=== PATIENT | male | born 1970 | race Caucasian/White ===

== ENCOUNTER 2017-04-10 12:34 | Emergency (ER) | payer SELFPAY ==
--- NOTE | 2017-04-10 13:00 | EDPHY ---
HPI/HX/ROS/PE/MDM Narrative: CHIEF COMPLAINT: Leg swelling and erythema. HPI: The patient is a 47 y/o male complaining of bilateral leg swelling and redness onset one week ago. He has never experienced these symptoms previously and reports that he is normally healthy. The rash is not painful or pruritic and does not cause any difficulty walking. He has not tried to treat his symptoms and cannot identify obvious precipitating factors. He does drink alcohol daily. He states he had some type of heart problem when he was a child, but cannot remember what the diagnosis was. He denies associated fever, chest pain, dyspnea, or rash elsewhere. REVIEW OF SYSTEMS: Aside from elements discussed in the HPI, a comprehensive 10-point review of systems was reviewed and is negative. PMH: Denies. Unknown "heart problem when I was little," seizure - unclear if alcohol withdrawal, rhinoplasty, small subdural hematoma 08/17/14 SOCIAL HISTORY: Works in a bar, drinks alcohol daily, daily smoker Prior medical history reviewed including admission 08/17/14 for head injury. PHYSICAL EXAM: General:Patient is alert, in no acute distress. ENT:Eyes are normal to inspection. ENT inspection normal. Neck: Normal inspection. Full range of motion. Respiratory:No respiratory distress. Breath sounds normal bilaterally. Cardiovascular: Regular rate and rhythm. Strong peripheral pulses. Normal cap refill. Abdomen:The abdomen is nontender to palpation. There are no peritoneal signs. Back: Normal to inspection. No tenderness to palpation. Skin: Normal color. No rash. Warm and dry. Extremities: Full range of motion. Lower extremities: bilateral 3+ pitting edema , erythema extending from ankle to knees, non-tender Neuro: Oriented x3. Normal motor function. Normal sensory function. ED Course: IV established. Labs drawn including CBC, CHEM, BNP, troponin, LFTs. US lower extremities ordered. US are negative. Labs are unremarkable. BNP normal, decreasingly likelihood of CHF. Patient has symmetric edema and erythema with normal labs and no fever, which makes me less suspicious of cellulitis. I discussed findings with him and recommended using compression stockings. He understands he should follow up with his PCP this week and sooner if symptoms progress. Return precautions given. He is comfortable with this plan. - Data Points Imaging Results: Imaging Impressions Extremity Venous Study 04/10/17 13:05 Impression: No evidence of deep vein thrombosis in the right or left lower extremity. Results called and discussed with Isac Gann MD, at 04/10/2017 14:34 Imaging: Discussed imaging studies w/ digital assistant Radiologist Laboratory Results: Laboratory Results 04/10/17 13:00 04/10/17 13:00 04/10/17 04/10/17 13:00 13:00 WBC 6.03 10^3/uL 10^3/uL (3.80-9.50) RBC 4.40 10^6/uL 10^6/uL (4.40-6.38) Hgb 13.6 g/dL L g/dL (13.7-17.5) Hct 41.6 % % (40.0-51.0) MCV 94.5 fL fL (81.5-99.8) MCH 30.9 pg pg (27.9-34.1) MCHC 32.7 g/dL g/dL (32.4-36.7) RDW 14.7 % % (11.5-15.2) Plt Count 295 10^3/uL 10^3/uL (150-400) MPV 8.4 fL L fL (8.7-11.7) Neut % (Auto) 62.7 % % (39.3-74.2) Lymph % (Auto) 16.7 % % (15.0-45.0) [place] % (Auto) 15.3 % H % (4.5-13.0) Eos % (Auto) 4.0 % % (0.6-7.6) Baso % (Auto) 0.8 % % (0.3-1.7) Nucleat RBC Rel Count 0.0 % % (0.0-0.2) Absolute Neuts (auto) 3.78 10^3/uL 10^3/uL (1.70-6.50) Absolute Lymphs (auto) 1.01 10^3/uL 10^3/uL (1.00-3.00) Absolute Monos (auto) 0.92 10^3/uL H 10^3/uL (0.30-0.80) Absolute Eos (auto) 0.24 10^3/uL 10^3/uL (0.03-0.40) Absolute Basos (auto) 0.05 10^3/uL 10^3/uL (0.02-0.10) Absolute Nucleated RBC 0.00 10^3/uL 10^3/uL (0-0.01) Immature Gran % 0.5 % % (0.0-1.1) Immature Gran # 0.03 10^3/uL 10^3/uL (0.00-0.10) Sodium 141 mEq/L mEq/L (134-144) Potassium 3.6 mEq/L mEq/L (3.5-5.2) Chloride 103 mEq/L mEq/L (97-110) Carbon Dioxide 25 mEq/l mEq/l (22-31) Anion Gap 13 mEq/L mEq/L (8-16) BUN 13 mg/dL mg/dL (7-23) Creatinine 0.8 mg/dL mg/dL (0.7-1.3) Estimated GFR > 60 Glucose 142 mg/dL H mg/dL (70-100) Calcium 8.9 mg/dL mg/dL (8.5-10.4) Total Bilirubin 0.7 mg/dL mg/dL (0.1-1.4) Conjugated Bilirubin 0.4 mg/dL mg/dL (0.0-0.5) Unconjugated Bilirubin 0.3 mg/dL mg/dL (0.0-1.1) AST 67 IU/L H IU/L (17-59) ALT 69 IU/L IU/L (21-72) Alkaline Phosphatase 133 IU/L H IU/L (38-126) Troponin I < 0.012 ng/mL ng/mL (0-0.034) NT-Pro-B Natriuret Pep 33 pg/mL pg/mL (0-125) Total Protein 7.8 g/dL g/dL (6.3-8.2) Albumin 4.4 g/dL g/dL (3.5-5.0) General Time Seen by Provider: 04/10/17 12:53 Initial Vital Signs: Initial Vital Signs Temperature (C) 36.7 C 04/10/17 12:41 Heart Rate 115 H 04/10/17 12:41 Respiratory Rate 16 04/10/17 12:41 Blood Pressure 146/71 H 04/10/17 12:41 O2 Sat (%) 95 04/10/17 12:41 O2 Delivery Mode Room Air Allergies/Adverse Reactions: Penicillins Allergy (Unknown, Verified 08/25/14 13:35) Home Medications: Medication Instructions Recorded Herbals/Supplements -Info Only 1 ea PO DAILY 08/25/14 levETIRAcetam [Keppra 500 mg (*)] 500 mg PO BID #14 tab 08/25/14 Departure - Departure Disposition: Home, Routine, Self-Care Clinical Impression: Leg swelling, bilateral, Leg erythema Condition: Good Instructions: Leg Edema (ED), Cephalexin (By mouth) Additional Instructions: 1. Follow up with your primary care provider this week. 2. Wear compression stockings whenever possible and particularly while standing at work. 3. Take Keflex as prescribed and be sure to complete the entire prescription. 4. Return to the ED for chest pain, fever, shortness of breath, severe leg pain , dramatic increase in swelling, or other worsening of condition. Referrals: Dameon Barbosa MD [Medical Doctor] - As per Instructions Report Scribed for: Isac Gann Report Scribed by: Shu Nicholson Date of Report: 04/10/17 Time of Report: 13:00 Physician Review and Approval Statement: Portions of this note were transcribed by an ED scribe. I personally performed the history, physical exam, and medical decision making; and confirm the accuracy of the information in the transcribed note.
[2017-04-10 13:10] LABS: % IMMATURE GRANULYOCYTES 0.5 % (0.0-1.1); ABSOLUTE IMMATURE GRANULOCYTES 0.03 10^3/uL (0.00-0.10); ADD DIFF? NO; ADD MORPH? NO; ADD SCAN? NO; ATYPICAL LYMPHOCYTE FLAG 0 (0-99); FRAGMENT RBC FLAG 0 (0-99); HEMATOCRIT 41.6 % (40.0-51.0); HEMOGLOBIN 13.6 g/dL (13.7-17.5); LEFT SHIFT FLG 0 (0-99); LIPEMIA HEMOLYSIS FLAG 80 (0-99); MEAN CELL HEMOGLOBIN 30.9 pg (27.9-34.1); MEAN CELL HEMOGLOBIN CONCENTR. 32.7 g/dL (32.4-36.7); MEAN CELL VOLUME 94.5 fL (81.5-99.8); MEAN PLATELET VOLUME 8.4 fL (8.7-11.7); PLATELET CLUMPS FLAG 0 (0-99); PLATELET COUNT 295 10^3/uL (150-400); RED CELL DISTRIBUTION WIDTH 14.7 % (11.5-15.2)
[2017-04-10 13:22] LABS: ALANINE AMINOTRANSFERASE 69 IU/L (21-72); ALBUMIN 4.4 g/dL (3.5-5.0); ALKALINE PHOSPHATASE 133 IU/L (38-126); ANION GAP 13 mEq/L (8-16); ASPARTATE AMINOTRANSFERASE 67 IU/L (17-59); BILIRUBIN,TOTAL 0.7 mg/dL (0.1-1.4); BILIRUBIN-CONJUGATED 0.4 mg/dL (0.0-0.5); BILIRUBIN-UNCONJUGATED 0.3 mg/dL (0.0-1.1); CALCIUM 8.9 mg/dL (8.5-10.4); CARBON DIOXIDE 25 mEq/l (22-31); CHLORIDE 103 mEq/L (97-110); CREATININE 0.8 mg/dL (0.7-1.3); GLOMERULAR FILTRATION RATE > 60; GLUCOSE 142 mg/dL (70-100); POTASSIUM 3.6 mEq/L (3.5-5.2); SODIUM 141 mEq/L (134-144); TOTAL PROTEIN 7.8 g/dL (6.3-8.2)
[2017-04-10 13:33] LABS: TROPONIN I < 0.012 ng/mL (0-0.034)
[2017-04-10 15:22] VITALS: BP 135/88; PULSE 85; RESP 14; TEMP 97.7; O2SAT 94
== END 2017-04-10 15:22 | disposition home or self-care (01) ==
DX: M79.89 Other specified soft tissue disorders (principal); L53.9 Erythematous condition, unspecified; F17.200 Nicotine dependence, unspecified, uncomplicated

== ENCOUNTER 2017-08-04 13:16 | Inpatient (IN) | payer SELFPAY ==
[2017-08-04] MEDS ORDERED: LORazepam 2 MG/ML INJ IVP ONE ×3 (13:47→15:57)
[2017-08-04] MEDS ORDERED: NS 1,000 ML IV ONE ×3 (13:48→17:05)
[2017-08-04 13:53] LABS: % IMMATURE GRANULYOCYTES 0.3 % (0.0-1.1); ABSOLUTE IMMATURE GRANULOCYTES 0.02 10^3/uL (0.00-0.10); ADD DIFF? NO; ADD MORPH? NO; ADD SCAN? NO; ATYPICAL LYMPHOCYTE FLAG 10 (0-99); FRAGMENT RBC FLAG 0 (0-99); HEMATOCRIT 43.2 % (40.0-51.0); HEMOGLOBIN 13.7 g/dL (13.7-17.5); LEFT SHIFT FLG 0 (0-99); LIPEMIA HEMOLYSIS FLAG 80 (0-99); MEAN CELL HEMOGLOBIN 31.4 pg (27.9-34.1); MEAN CELL HEMOGLOBIN CONCENTR. 31.7 g/dL (32.4-36.7); MEAN CELL VOLUME 98.9 fL (81.5-99.8); PLATELET CLUMPS FLAG 0 (0-99); PLATELET COUNT 218 10^3/uL (150-400); RED BLOOD CELL COUNT 4.37 10^6/uL (4.40-6.38); RED CELL DISTRIBUTION WIDTH 13.4 % (11.5-15.2)
[2017-08-04] MEDS ORDERED: FOLIC ACID 1 MG TAB PO ONE (13:53)
[2017-08-04] MEDS ORDERED: THIAMINE HCL 100 MG TAB PO ONE (13:53)
--- NOTE | 2017-08-04 13:56 | EDPHY ---
General - History Smoking Status: Current every day smoker Narrative: CHIEF COMPLAINT: Possible seizure HISTORY OF PRESENT ILLNESS: Patient arrives by EMS with reports of possible seizure. He is completely amnestic to the event. He has no idea what happened. He remembers being at work this morning but no other details. EMS reports that bystanders witnessed seizure-like activity but there is no detail. No witnesses here. He reports history of seizure in the past but does not recall when or where this happened. He does not know what medications he is mostly all. He does not know anything other than where he is right. No other history obtainable as he is severely postictal. REVIEW OF SYSTEMS: Ten systems reviewed and are negative unless otherwise noted in the HPI PAST MEDICAL HISTORY: Seizure disorder. Possible alcoholism PAST SURGICAL HISTORY: None SOCIAL HISTORY: Smoker. Admits to daily alcohol use. Works at a [employer] here in [place] FAMILY HISTORY: Noncontributory EXAMINATION General Appearance: Alert, no distress, diaphoretic Head: normocephalic, atraumatic Eyes: Pupils equal and round, no conjunctival pallor or injection ENT, Mouth: Mucous membranes moist. Airway patent Neck: Normal inspection, supple, non-tender Respiratory: Lungs are clear to auscultation Cardiovascular: Tachycardic rate with regular rhythm. No murmur. Gastrointestinal: Abdomen is soft and nontender Back: non-tender, no bony abnormalities Neurological: Tremulous. GCS 14. Alert to person place and time. Amnestic to details of the event, nonfocal, strength symmetric. Skin: Warm and dry, no rash no petechiae. Diaphoretic Extremities: Nontender, no pedal edema Psychiatric: Mood and affect normal DIFFERENTIAL DIAGNOSES: Including but not limited to seizure with postictal state, status epilepticus, alcohol withdrawal, delirium tremens, dehydration, electrolyte disturbance MDM: 1:45 p.m. Possible seizure in a patient with documented history of seizures and alcoholism with withdrawal seizures. Patient is postictal and I cannot get a clear history. He arrives by EMS with no on else at bedside. Per EMS reports there was no trauma. No full description of the seizure-like activity. I have ordered laboratory studies, Ativan, clinical research monitor, thiamine and folate. I will monitor closely. 2:30 p.m. The laboratory studies thus far reveal no significant findings. Consistent with likely seizure. He remains mildly tachycardic and postictal but he is awake. He is not encephalopathic. 3:15 p.m. I re-evaluated the patient. He is more diaphoretic now than previous evaluation. He remains tachycardic but normotensive. Afebrile. He does recall more fits previous health history at this time but cannot provide many details of this. magnesium, etoh and prolactin pending. Plan for admission to hospital for observation. 3:45 p.m. I have re-evaluated the patient. The repeat dose of Ativan has improved his tachycardia. He remains stable with no seizure activity. Still have concern for possible delirium tremens. I discussed the case with Dr. Bernal, and she will admit the patient to her service. He is admitted to step-down unit in stable condition. 4:30 p.m. Patient re-evaluated. Continues to be tachycardic. I have ordered Librium and Ativan. He remains awake alert no acute distress. (Rogelio Yates) Discussion: I evaluated and participated in the management of the patient. My co-signature indicates that I have reviewed this chart and I agree with thefindings and plan of care as documented. My personal H&P findings include: 47 year old male presenting after a seizure. Initially post ictal, but cleared over time. However, patient developed tremors, tachycardia and began to develop some confusion. Suspect alcohol withdrawl. General Appearance: Alert, quite diaphoretic on my exam. No head trauma. PERRL, no nystagmus. Lungs clear and heart tachycardic but regular. Abdomen benign. Tremors of hands. Oriented to person and place only. Will treat agressively with benzodiazepines and fluids and admission. No clear indication for repeat CT scan of head; will follow closely on floor. (Paola Batres) - Objective Vital Signs: Initial Vital Signs Temperature (C) 36.9 C 08/04/17 13:23 Heart Rate 122 H 08/04/17 13:23 Respiratory Rate 20 08/04/17 13:23 Blood Pressure 157/93 H 08/04/17 13:23 O2 Sat (%) 94 08/04/17 13:23 O2 Delivery Mode Nasal Cannula O2 (L/minute) 2 Allergies/Adverse Reactions: Penicillins Allergy (Unknown, Verified 08/25/14 13:35) Home Medications: Medication Instructions Recorded levETIRAcetam [Keppra 500 mg (*)] 500 mg PO BID #60 tab 08/05/17 Laboratory Results: Laboratory Results 08/04/17 12:30 08/04/17 12:30 Medications Given: Discontinued Medications Chlordiazepoxide HCl (Librium) 25 mg PO EDNOW ONE Stop: 08/04/17 15:58 Last Admin: 08/04/17 16:10 Dose: 25 mg Chlordiazepoxide HCl (Librium) 50 mg PO ONCE ONE Stop: 08/04/17 17:09 Last Admin: 08/04/17 18:29 Dose: 50 mg Chlordiazepoxide HCl (Librium) 25 mg PO TID JOSE ARMANDO Stop: 01/31/18 21:59 Last Admin: 08/05/17 09:12 Dose: 25 mg Enoxaparin Sodium (Lovenox) 40 mg SC DAILY JOSE ARMANDO Stop: 02/01/18 08:59 Last Admin: 08/05/17 09:12 Dose: 40 mg Folic Acid (Folic Acid) 1 mg PO EDNOW ONE Stop: 08/04/17 13:54 Last Admin: 08/04/17 13:59 Dose: 1 mg Sodium Chloride (Ns) 1,000 mls @ 0 mls/hr IV EDNOW ONE; Wide Open PRN Reason: Protocol Stop: 08/04/17 13:49 Last Admin: 08/04/17 13:58 Dose: 1,000 mls Sodium Chloride (Ns) 1,000 mls @ 0 mls/hr IV EDNOW ONE; Wide Open PRN Reason: Protocol Stop: 08/04/17 15:18 Last Admin: 08/04/17 15:29 Dose: 1,000 mls Sodium Chloride (Ns) 1,000 mls @ 3,000 mls/hr IV ONCE ONE Stop: 08/04/17 17:24 Last Admin: 08/04/17 18:27 Dose: 1,000 mls Thiamine HCl 500 mg/ Sodium (Chloride) 105 mls @ 210 mls/hr IV DAILY JOSE ARMANDO Stop: 08/05/17 09:29 Last Admin: 08/05/17 09:12 Dose: 105 mls Levetiracetam (Keppra) 500 mg PO BID [facility] Stop: 01/31/18 19:44 Last Admin: 08/05/17 09:12 Dose: 500 mg Lorazepam (Ativan Injection) 1 mg IVP EDNOW ONE Stop: 08/04/17 13:48 Last Admin: 08/04/17 13:59 Dose: 1 mg Lorazepam (Ativan Injection) 1 mg IVP EDNOW ONE Stop: 08/04/17 15:18 Last Admin: 08/04/17 15:29 Dose: 1 mg Lorazepam (Ativan Injection) 1 mg IVP EDNOW ONE Stop: 08/04/17 15:58 Last Admin: 08/04/17 16:10 Dose: 1 mg Nicotine (Nicoderm Cq) 21 mg TD DAILY JOSE ARMANDO Stop: 01/31/18 19:44 Last Admin: 08/05/17 09:12 Dose: 21 mg Potassium Chloride (Klor-Con) 30 meq PO ONCE ONE PRN Reason: Protocol Stop: 08/04/17 20:09 Last Admin: 08/04/17 20:25 Dose: 30 meq Thiamine HCl (Vitamin B-1) 100 mg PO EDNOW ONE Stop: 08/04/17 13:54 Last Admin: 08/04/17 13:59 Dose: 100 mg Departure - Departure Disposition: [facility] Clinical Impression: Tachycardia, Seizure Alcohol withdrawal Qualifiers: Complication of substance-induced condition: with unspecified complication Qualified Code(s): F10.239 - Alcohol dependence with withdrawal, unspecified Condition: Good
[2017-08-04 14:00] LABS: ANION GAP 24 mEq/L (8-16); CALCIUM 9.5 mg/dL (8.5-10.4); CARBON DIOXIDE 14 mEq/l (22-31); CHLORIDE 100 mEq/L (97-110); CREATININE 1.1 mg/dL (0.7-1.3); GLOMERULAR FILTRATION RATE > 60; GLUCOSE 146 mg/dL (70-100); POTASSIUM 3.4 mEq/L (3.5-5.2); SODIUM 138 mEq/L (134-144)
--- NOTE | 2017-08-04 15:25 | CPEKG ---
Heart Rate: 98 RR Interval: 612 P-R Interval: 160 QRSD Interval: 84 QT Interval: 372 QTC Interval: 476 P Captiva: 76 QRS Captiva: 79 T Wave Captiva: 67 EKG Severity - ABNORMAL ECG - EKG Impression: SINUS RHYTHM EKG Impression: SERGIO, CONSIDER BIATRIAL ABNORMALITIES Electronically Signed By: Janak Saleem 05-Aug-2017 12:25:00
[2017-08-04 15:39] LABS: PROLACTIN 15.8 ng/mL (3.7-17.9)
[2017-08-04] MEDS ORDERED: chlordiazePOXIDE 25 MG CAP PO ONE (15:57)
[2017-08-04 16:06] LABS: ETHANOL SERUM 49 mg/dL (0-10)
[2017-08-04] MEDS ORDERED: ONDANSETRON DISINTEGRATING 4 MG TAB PO PRN (17:05)
[2017-08-04] MEDS ORDERED: ACETAMINOPHEN 325 MG TAB PO PRN (17:05)
[2017-08-04] MEDS ORDERED: ONDANSETRON 4 MG/2 ML VIAL IVP PRN (17:05)
[2017-08-04] MEDS ORDERED: LORazepam 2 MG/ML INJ IVP PRN (17:08)
[2017-08-04] MEDS ORDERED: DEXMEDETOMIDINE HCL 400 MCG in NS 100 ML IV SCH (17:30)
[2017-08-04] MEDS: chlordiazePOXIDE 25 MG CAP PO ONE ×2 (18:24→18:29)
[2017-08-04] MEDS ORDERED: PROTOCOL POTASSIUM 1 DOSE MISC PRN (19:36)
[2017-08-04] MEDS: THIAMINE HCL 500 MG in NS 100 ML IV SCH (19:38)
--- NOTE | 2017-08-04 20:07 | GHP ---
[f rep st] HISTORY AND PHYSICAL DATE OF ADMISSION: 08/04/2017 CHIEF COMPLAINT: Seizure. HISTORY OF PRESENT ILLNESS: 47-year-old male with a history of alcohol abuse and underlying seizure disorder, who presents after having a witnessed seizure at work. The patient was brought in by emerg ency transport. Seizure was witnessed by co-workers, who are not present in the ED to give the story . The patient is unable to recall the event himself. Reports that his last drink occurred the ng prior to presentation. He actively denies any pain, any vision changes, any nausea, vomiting, abd ominal discomfort, diarrhea, dysuria, myalgias, arthralgias, or fever. PAST MEDICAL HISTORY: 1. Seizure disorder as a child. 2. Alcohol abuse with history of withdrawal. SOCIAL HISTORY: The patient smokes about a pack of cigarettes a day, drinks 5 or more alcoholic beve rages a day, and denies illicit drugs or marijuana. FAMILY HISTORY: Positive for a brother who has had seizures before. REVIEW OF SYSTEMS: A 10-point review of systems is negative with the exception of that reported in t he HPI. PHYSICAL EXAMINATION: VITAL SIGNS: Blood pressure 144/90, heart rate 125, respiratory rate 13. 96% on 2 L. 37.0. GENERAL: This is a disheveled young male, who appears lethargic. HENT: Notable fo r dry mucous membranes. EYES: Negative for any icterus. CARDIAC: The patient is tachycardic but r egular. PULMONARY: Clear to auscultation bilaterally. GASTROINTESTINAL: Positive bowel sounds. A BDOMEN: Soft and nontender in all 4 quadrants. MUSCULOSKELETAL: Negative for any lower extremity e satish. SKIN: Negative for any rashes. NEUROLOGIC: The patient is quite tremulous with tongue fasci culations and somnolent. PSYCHIATRIC: He is cooperative. DATA: White count is 6.6, hematocrit 43.2. Creatinine of 1.1. Potassium of 3.4. Ethyl alcohol 49. EKG, which I personally reviewed and interpreted, shows sinus rhythm, normal axis, normal intervals, without any acute ST-T changes. ASSESSMENT AND PLAN: This is a 47-year-old male, presenting with seizure. 1. Acute seizure. The patient likely has an underlying seizure disorder. Reports he has not taken medications regularly in many years but was historically on Keppra. We will restart Keppra here in [facility]. Additionally, the patient is at high risk for seizure secondary to alcohol withdrawal. We will aggressively treat withdrawal as well. We will consult Neurology in the morning for long-te followup of this patient post disposition and recommendations related to any additional acute inpa tient workup. 2. Acute alcohol withdrawal. The patient is quite tremulous, tachycardic, with tongue fasciculation s. I do believe we are at the beginning of what likely will be a complicated withdrawal. I have ini tiated Librium, Ativan, IV thiamin, and have written for a Precedex drip, as I suspect it is possible he needs it before the end of the evening. We will continue IV fluids and supportive care. 3. Tobacco abuse. I have placed a nicotine patch. 4. Hypokalemia. We will start the patient on electrolyte protocol. 5. Prophylaxis with Lovenox. DIET: Regular. DISPOSITION: I expect greater than 2 midnights, as the patient is likely going to have worsening of his withdrawal before he improves. I have discussed the case with the emergency room physician. The patient will be triaged to the step-down unit for care. /[id number]/MODL
[2017-08-04] MEDS ORDERED: POTASSIUM CL 10 MEQ TAB PO ONE (20:08)
[2017-08-04] MEDS: levETIRAcetam 500 MG TAB PO SCH (20:25)
[2017-08-04] MEDS: NICOTINE 21 MG/24 HR PATCH TD SCH (20:25)
[2017-08-04] MEDS: chlordiazePOXIDE 25 MG CAP PO SCH (21:48)
[2017-08-05 04:08] VITALS: O2SAT 95
[2017-08-05 05:52] LABS: % IMMATURE GRANULYOCYTES 0.5 % (0.0-1.1); ABSOLUTE IMMATURE GRANULOCYTES 0.03 10^3/uL (0.00-0.10); ADD DIFF? NO; ADD MORPH? NO; ADD SCAN? NO; ATYPICAL LYMPHOCYTE FLAG 0 (0-99); FRAGMENT RBC FLAG 0 (0-99); HEMATOCRIT 39.4 % (40.0-51.0); HEMOGLOBIN 12.9 g/dL (13.7-17.5); LEFT SHIFT FLG 0 (0-99); LIPEMIA HEMOLYSIS FLAG 80 (0-99); MEAN CELL HEMOGLOBIN 30.9 pg (27.9-34.1); MEAN CELL HEMOGLOBIN CONCENTR. 32.7 g/dL (32.4-36.7); MEAN CELL VOLUME 94.5 fL (81.5-99.8); PLATELET CLUMPS FLAG 0 (0-99); PLATELET COUNT 151 10^3/uL (150-400); RED BLOOD CELL COUNT 4.17 10^6/uL (4.40-6.38); RED CELL DISTRIBUTION WIDTH 13.1 % (11.5-15.2)
[2017-08-05 06:15] LABS: ANION GAP 10 mEq/L (8-16); CALCIUM 8.8 mg/dL (8.5-10.4); CARBON DIOXIDE 21 mEq/l (22-31); CHLORIDE 102 mEq/L (97-110); CREATININE 0.8 mg/dL (0.7-1.3); GLOMERULAR FILTRATION RATE > 60; GLUCOSE 74 mg/dL (70-100); MAGNESIUM 1.9 mg/dL (1.6-2.3); SODIUM 133 mEq/L (134-144)
[2017-08-05 07:27] VITALS: RESP 15
[2017-08-05] MEDS ORDERED: ENOXAPARIN 40 MG/0.4 ML SYR SC SCH (09:00)
[2017-08-05] MEDS: THIAMINE HCL 500 MG in NS 100 ML IV SCH (09:12)
[2017-08-05] MEDS: chlordiazePOXIDE 25 MG CAP PO SCH (09:12)
[2017-08-05] MEDS: NICOTINE 21 MG/24 HR PATCH TD SCH (09:12)
[2017-08-05] MEDS: levETIRAcetam 500 MG TAB PO SCH (09:12)
--- NOTE | 2017-08-05 09:39 | NEUROPROG ---
Assessment: [id number] CC: Dr. Bernal consulted neurology for a seizure. Results placed in the EMR for her review. HPI: He was noted to have a generalized seizure on 08/04/17 so was brought to [facility] by EMS and admitted. Pt with PMHx of seizure disorder, history of alcohol abuse and withdrawal, and reporting his last drink was 08/03/17. I initially saw him on 08/05/17. He had been started on keppra 500 mg bid and was seizure free since then. He was being treated for alcohol withdrawal on CIWA and reported no new complaints. PMHx: seizure disorder, alcohol abuse with history of withdrawal SHx: 5 alcoholic drinks per day FHx: seizures ROS: Pt denied acute fever, total vision loss, active severe chest pain, respiratory failure, total body severe rash, total bowel/bladder incontinence, psychosis, active seizures, or active bleeding O: VS reviewed General: Alert Eyes: Fundoscopic exam not able to visualize optic disks CV: Heart RRR, no murmur, no carotid bruit Lungs: Clear to auscultation bilaterally, no rhonci or rales Neuro: - Mental: . Oriented x person/place/date . concentration appears normal . speech fluency/comprehension normal . memory appears normal . fund of knowledge appear intact - Cranial Nerves: . II: PERRL, VFFTC . III/IV/: EOMI, no nystagmus, normal smooth pursuits, no Ptosis . V: facial sensation intact to LT . VII: face symmetric to eye closure and smile . VIII: hearing intact to conversation . IX/X: uvula raises symmetrically . XI: SCM 5/5 B/L strength . XII: tongue protrudes midline w/nl strength - Motor: . Tone: normal tone in all 4 extrem, tremor in arms/legs (likely from alcohol withdrawal) . Strength: no pronator drift, strength 5/5 throughout (B/L delt, bic, tri, hand machine feeder raw stock, hf/he, df/pf) - Reflexes: B/L bic/BR/patella 2/4 - Sensory: all 4 extrem intact to light touch - Coord: [id number] wnl, ROSHAN wnl, [id number] wnl - Gait: normal casual gait Labs: 08/04/17- CBC wnl, Chem K 3.4L CO2 14L Anion Gap 24H GLuc 146, alcohol 49H Rads: 07/08/16- Head CT: severe sinusitis otherwise normal head CT Assessment: 1. Seizure disorder in setting of alcohol abuse: Normal neurologic exam 08/04/17 and unremarkable intracranial head CT 07/08/16. Pt reports underlying seizure disorder with superimposed alcohol abuse disorder. Agree with Keppra 500 mg bid chcf in addition to need for alcohol cessation. 2. Alcohol Withdrawal: defer to hospitalist Plan: - Cont Keppra 500 mg bid - No driving and seizure precautions until f/u in neurology clinic - F/U in neurology clinic in 6 weeks Neurology will sign off but will be happy to become reinvolved if needed. Objective: Vital Signs Temp Pulse Resp BP Pulse Ox 37.1 C 75 15 113/71 95 08/05/17 07:26 08/05/17 07:26 08/05/17 07:26 08/05/17 07:26 08/05/17 07:26 Laboratory Results 08/05/17 05:38 08/05/17 05:38 08/04/17 08/05/17 08/06/17 05:59 05:59 05:59 Intake Total 1613 Output Total 950 Balance 663 Allergies/Adverse Reactions: Penicillins Allergy (Unknown, Verified 08/25/14 13:35)
[2017-08-05 11:28] VITALS: BP 127/75; PULSE 84; TEMP 98.2
--- NOTE | 2017-08-05 15:15 | ASMTCASEMG ---
Living Arrangements What is your living Answers: Alone arrangement? Who do you live with? Type Of Residence What kind of residence do Answers: Homeless you live in? Discharge Plan Comments Coordination Status Comments Notes: Patient is a 47yo male with a hx of alcohol abuse and underlying seizure disorder. Patient works for the [employer] and had a witnessed seizure at work. Patient is also in alcohol withdrawal, tremulous, tachycardic, with tongue fasciculations. Physician expects a complicated withdrawal. OT/PT have been ordered. Awaiting therapies' recommendations to d/t d/c needs. CM will follow. Date Signed: 08/05/2017 03:14 PM Electronically Signed By:Tamia Vidal LCSW
--- NOTE | 2017-08-05 16:20 | GDS ---
[f rep st] DISCHARGE SUMMARY DIAGNOSES: 1. Alcohol abuse and withdrawal. 2. Seizure. 3. Tobacco abuse. 4. Hypokalemia. 5. Mild hyponatremia. HOSPITAL COURSE: This is a 47-year-old man with a history of alcohol abuse, who had a witnessed seiz ure. He was started on Keppra. Seen by Neurology, who agrees with this plan. Recommend that he fol low seizure precautions, including no driving until he is cleared by a neurologist. He should follow up with Dr. Antonio in 6 weeks. He has had history of alcohol abuse. He tells me that he has no plans of cessation at this point tho ugh he does want to cut down. He has received some treatment for withdrawal. On discharge, he is ambulating, mentating, appears to be in mild withdrawal. He is anxious to be discharged. BILLING: I spent more than 30 minutes on the day of discharge coordinating care. /[id number]/MODL
[2017-08-07] MEDS ORDERED: THIAMINE HCL 100 MG TAB PO SCH (09:00)
== END 2017-08-05 16:07 | disposition home or self-care (01) | DRG 101 ==
LOC: EDUNIT# → F2N 18:14
PROVIDERS: ADMIT Hospitalist; ATTEND Student in an Organized Health Care Education/Training Program
DX: G40.909 Epilepsy, unspecified, not intractable, without status epilepticus (principal); F10.239 Alcohol dependence with withdrawal, unspecified; Z87.891 Personal history of nicotine dependence; E87.6 Hypokalemia
CPT/HCPCS: 96374; 97161-GP; 97165-GO; G0480; J1650; J2060; J3411

== ENCOUNTER 2018-01-15 14:41 | Emergency (ER) | payer SELFPAY ==
[2018-01-15] MEDS ORDERED: THIAMINE HCL 100 MG TAB PO ONE (14:44)
[2018-01-15] MEDS ORDERED: FOLIC ACID 1 MG TAB PO ONE (14:44)
[2018-01-15] MEDS ORDERED: LORazepam 2 MG/ML INJ IVP ONE (14:47)
[2018-01-15] MEDS ORDERED: LORazepam 1 MG TAB PO PRN (14:47)
[2018-01-15] MEDS ORDERED: LORazepam 2 MG/ML INJ IVP PRN (14:47)
--- NOTE | 2018-01-15 14:47 | EDPHY ---
H & P - Personal History Tetanus Vaccine Date: ADM 08/17/2014 - Medical/Surgical History Hx Asthma: No Hx Chronic Respiratory Disease: No Hx Diabetes: No Hx Cardiac Disease: No Hx Renal Disease: No Hx Cirrhosis: No Hx Alcoholism: Yes Hx HIV/AIDS: No Hx Splenectomy or Spleen Trauma: No Other PMH: pmh- seizures, narcolepsy, ETOH, Cocaine. psh- rhinoplasty - Social History Smoking Status: Current every day smoker Time Seen by Provider: 01/15/18 14:43 HPI/ROS: CHIEF COMPLAINT: Seizure-like activity HISTORY OF PRESENT ILLNESS: 48-year-old male history of alcoholism, history of seizures, history of alcohol withdrawal seizure, arrives by ambulance after he was at work, a colleague noticed that as he was standing he started to act strange, had seizure-like activity, the colleague grabbed the patient lowered him to the ground. No trauma no head injury no fall. Patient approximately 1 min of generalized tonic-clonic like movements and has now recovered. Last drink of alcohol was 24 hr ago. Patient has a history of epilepsy, has been previously prescribed Keppra which he has not been on for several months. No incontinence. No oral trauma. No antecedent illness. REVIEW OF SYSTEMS: A ten point review of systems was performed and is negative with the exception of the items mentioned in the HPI PAST MEDICAL & SURGICAL HISTORY: Epilepsy. Alcohol withdrawal seizure. Noncompliant with Keppra SOCIAL HISTORY:Last drink of alcohol 24 hr ago PHYSICAL EXAM (Prior to examination, patient consented to physical exam, hands were washed and my usual and customary physical exam procedures followed) 1) GENERAL: Well-developed, well-nourished, alert and oriented to person place time events. Somnolent, tremulous 2) HEAD: Normocephalic, atraumatic 3) HEENT: Pupils equal, round, reactive to light bilaterally. Sclera anicteric. Nasopharynx, oropharynx, clear, no lesions. Ears bilaterally with normal tympanic membranes. No raccoon eyes, no Mitchell sign. No rhinorrhea. No otorrhea. 4) NECK: Full range of motion, no meningeal signs. No midline C-spine pain. 5) LUNGS: Clear auscultation bilaterally, no wheezes, no rhonchi, no retractions. 6) HEART: Regular rate and rhythm, no murmur, no heave, no gallop. 7) ABDOMEN: No guarding, no rebound, no focal tenderness, no signs of trauma 8) MUSCULOSKELETAL: Moving all extremities, no focal areas of tenderness, no obvious trauma. 9) BACK: No midline vertebral tenderness, no fluctuance, no step-off, no obvious trauma, no visual or palpable abnormality. 10) SKIN: No rash, no petechiae. 11) Psychiatric: Patient is oriented X 4, there is no agitation. DIFFERENTIAL DIAGNOSIS: In no particular order including but not limited to seizure, alcohol withdrawal seizure, delirium tremens, medication noncompliance (Sonny Guzman) Constitutional: Initial Vital Signs Temperature (C) 37.1 C 01/15/18 14:45 Heart Rate 118 H 01/15/18 14:45 Respiratory Rate 18 01/15/18 14:45 Blood Pressure 152/91 H 01/15/18 14:45 O2 Sat (%) 92 01/15/18 14:45 O2 Delivery Mode Room Air O2 (L/minute) 2 Allergies/Adverse Reactions: Penicillins Allergy (Unknown, Verified 08/25/14 13:35) Home Medications: Medication Instructions Recorded levETIRAcetam [Keppra 500 mg (*)] 500 mg PO BID #60 tab 08/05/17 Medical Decision Making ED Course/Re-evaluation: 2:45 p.m.: Likely acute alcohol withdrawal, he is tremulous, at this time. Denies hallucination. Doubt delirium tremens. He is also noted to have a history of seizure disorder. He has a history of seizure disorder, has been noncompliant with Keppra . He has no visible signs of trauma. CIWA protocol initiated, will be given IV benzodiazepine and observed for period of time. He denies suicidal or homicidal ideation.. Old medical records reviewed. Care of patient under supervision of primary supervising physician Dr Dk Adames. 4:55 p.m.: Re-evaluation, he is sleeping, easily woken, more coherent at this time. Discussed his past medical history. He has been off of Keppra for approximately 1 year. I have recommended he be on an antiepileptic, have offered to fill a prescription for Keppra via the hospital [facility] however states that he does not want to be on any antiepileptics. 5:13 p.m.: Re-evaluated the patient, a sitting upright, awake alert oriented person place time events. He was observed ambulating with stable steady gait. He tells me at this time that he would like to be discharged. He is currently not intoxicated, shows no signs of altered mental status, is answering questions appropriately. He was given oral thiamine and folate. He remains tachycardic which may be secondary to his acute alcohol withdrawal. I recommend he stay in the ER for further period of time sitting may continue to observe him. He states that he would like to go. States that he has an apartment that he lives in. I have offered [facility] which he declines. Plan will therefore be discharged. I recommended long-term sobriety from alcohol. I recommend he follow up with primary care and neurologist to discuss his epilepsy. Doubt delirium tremens. Given usual and customary seizure precautions and instructions as well as alcohol precautions and instructions. (Sonny Guzmna) Other Provider: PHYSICIAN DOCUMENTATION: The patient was evaluated and managed by the Physician Cost Reduction Engineer. My co- signature indicates that I have reviewed this chart and I agree with the findings and plan of care as documented. I am the secondary supervising physician. (Rubens Adames) - Data Points Laboratory Results: Laboratory Results 01/15/18 14:45 01/15/18 14:45 01/15/18 01/15/18 14:45 14:45 WBC 9.99 10^3/uL H 10^3/uL (3.80-9.50) RBC 4.83 10^6/uL 10^6/uL (4.40-6.38) Hgb 15.4 g/dL g/dL (13.7-17.5) Hct 47.2 % % (40.0-51.0) MCV 97.7 fL fL (81.5-99.8) MCH 31.9 pg pg (27.9-34.1) MCHC 32.6 g/dL g/dL (32.4-36.7) RDW 13.1 % % (11.5-15.2) Plt Count 363 10^3/uL 10^3/uL (150-400) MPV 8.4 fL L fL (8.7-11.7) Neut % (Auto) 71.2 % % (39.3-74.2) Lymph % (Auto) 15.4 % % (15.0-45.0) Kane % (Auto) 11.9 % % (4.5-13.0) Eos % (Auto) 0.5 % L % (0.6-7.6) Baso % (Auto) 0.5 % % (0.3-1.7) Nucleat RBC Rel Count 0.0 % % (0.0-0.2) Absolute Neuts (auto) 7.11 10^3/uL H 10^3/uL (1.70-6.50) Absolute Lymphs (auto) 1.54 10^3/uL 10^3/uL (1.00-3.00) Absolute Monos (auto) 1.19 10^3/uL H 10^3/uL (0.30-0.80) Absolute Eos (auto) 0.05 10^3/uL 10^3/uL (0.03-0.40) Absolute Basos (auto) 0.05 10^3/uL 10^3/uL (0.02-0.10) Absolute Nucleated RBC 0.00 10^3/uL 10^3/uL (0-0.01) Immature Gran % 0.5 % % (0.0-1.1) Immature Gran # 0.05 10^3/uL 10^3/uL (0.00-0.10) Sodium 141 mEq/L mEq/L (135-145) Potassium 4.4 mEq/L mEq/L (3.5-5.2) Chloride 98 mEq/L mEq/L (97-110) Carbon Dioxide 19 mEq/l L mEq/l (22-31) Anion Gap 24 mEq/L H mEq/L (8-16) BUN 9 mg/dL mg/dL (7-23) Creatinine 0.9 mg/dL mg/dL (0.7-1.3) Estimated GFR > 60 Glucose 145 mg/dL H mg/dL (70-100) Calcium 9.5 mg/dL mg/dL (8.5-10.4) Ethyl Alcohol < 10 mg/dL mg/dL (0-10) Medications Given: Lorazepam (Ativan Injection) 0 mg IVP Q1H PRN; Protocol PRN Reason: Alcohol Withdrawal w/IV access Stop: 01/16/18 02:47 Last Admin: 01/15/18 15:30 Dose: 2 mg Discontinued Medications Folic Acid (Folic Acid) 1 mg PO EDNOW ONE Stop: 01/15/18 14:45 Last Admin: 01/15/18 16:52 Dose: 1 mg Sodium Chloride (Ns) 1,000 mls @ 0 mls/hr IV ONCE ONE PRN Reason: Wide Open Stop: 01/15/18 14:51 Last Admin: 01/15/18 14:54 Dose: 1,000 mls Lorazepam (Ativan Injection) 2 mg IVP EDNOW ONE Stop: 01/15/18 14:48 Last Admin: 01/15/18 14:47 Dose: 2 mg Thiamine HCl (Vitamin B-1) 100 mg PO EDNOW ONE Stop: 01/15/18 14:45 Last Admin: 01/15/18 16:52 Dose: 100 mg Departure - Departure Disposition: Home, Routine, Self-Care Clinical Impression: Noncompliance with medication regimen Epilepsy Qualifiers: Epilepsy type: other Intractability: not intractable Status epilepticus: without status epilepticus Qualified Code(s): G40.802 - Other epilepsy, not intractable, without status epilepticus Alcohol withdrawal Qualifiers: Complication of substance-induced condition: uncomplicated Qualified Code(s): F10.230 - Alcohol dependence with withdrawal, uncomplicated Condition: Good Instructions: Epilepsy (ED), Alcohol Withdrawal (ED) Additional Instructions: You have declined further evaluation from the emergency department. You have declined transport to the [facility]. You have declined anti epileptic medications. Recommend you follow up with primary care provider and Neurology. Recommend you stay compliant with seizure medications. Recommend you stay sober from alcohol. Referrals: [facility],. [Clinic] - 2-3 days, call for appt. Kwadwo Souza MD [Medical Doctor] - 2-3 days, call for appt.
[2018-01-15] MEDS ORDERED: NS 1,000 ML IV ONE (14:50)
[2018-01-15 14:51] LABS: PLATELET COUNT 363 10^3/uL (150-400)
[2018-01-15 17:33] VITALS: BP 135/94; PULSE 103; RESP 18; TEMP 99; O2SAT 94
== END 2018-01-15 17:35 | disposition home or self-care (01) ==
DX: G40.802 Other epilepsy, not intractable, without status epilepticus (principal); F10.230 Alcohol dependence with withdrawal, uncomplicated; F17.200 Nicotine dependence, unspecified, uncomplicated; Z91.14 Patient's other noncompliance with medication regimen
CPT/HCPCS: 96374; G0480

== ENCOUNTER 2018-01-15 19:19 | Emergency (ER) | payer SELFPAY ==
--- NOTE | 2018-01-15 20:44 | EDPHY ---
H & P Time Seen by Provider: 01/15/18 19:35 HPI/ROS: Chief complaint. Wants seizure medication HPI. Patient is 48-year-old male was seen earlier today for apparent alcohol withdrawal seizure yesterday. He also has a history of epilepsy. He refused go to the [facility] went to a friend's house instead and apparently consumed some type of intoxicants. He also refused prescription for Keppra which he has taken before. He now returns and would like prescription for Keppra ROS Constitutional. no fever/chills, no weakness Eyes. no problems with vision ENT. no sore throat, no nasal drainage Cardiovascular. no chest pain Respiratory. no shortness of breath, no cough Abdominal. no abdominal pain, no nausea/vomiting, no diarrhea . no problems urinating MS. no calf pain/swelling, no neck/back pain, no joint pain Skin. no rash Lymph. no swollen glands Neuro. Seizure earlier today Past Medical/Surgical History: Past medical history significant for seizure disorder, narcolepsy, polysubstance abuse Social History: Single, daily smoker, no alcohol Smoking Status: Current every day smoker Physical Exam: General Appearance: Alert well-developed male mild distress vital signs show initial tachycardia 120 Eyes: Pupils equal and round no pallor or injection. ENT, Mouth: Mucous membranes are moist. Respiratory: There are no retractions, lungs are clear to auscultation. Cardiovascular: Regular rate and rhythm. Tachycardia Gastrointestinal: Abdomen is soft and nontender, no masses, bowel sounds normal. Neurological: Awake and alert, sensory and motor exams grossly normal. Skin: Warm and dry, no rashes. Musculoskeletal: Neck is supple nontender. Extremities symmetrical, full range of motion. Psychiatric: Patient is oriented X 3, there is no agitation. Constitutional: Initial Vital Signs Temperature (C) 37.2 C 01/15/18 19:23 Heart Rate 120 H 01/15/18 19:23 Respiratory Rate 20 01/15/18 19:23 Blood Pressure 124/87 H 01/15/18 19:23 O2 Sat (%) 95 01/15/18 19:23 O2 Delivery Mode Room Air Allergies/Adverse Reactions: Penicillins Allergy (Unknown, Verified 08/25/14 13:35) Home Medications: Medication Instructions Recorded levETIRAcetam [Keppra 500 mg (*)] 500 mg PO BID #60 tab 08/05/17 levETIRAcetam [Keppra 500 mg (*)] 500 mg PO BID #30 tab 01/15/18 Medical Decision Making ED Course/Re-evaluation: Patient remained stable. He is given a prescription for seizure medicine and taken to the [facility]. Differential Diagnosis: Polysubstance abuse. Earlier he was to go to the [facility] but went to a friend's house and became more intoxicated. No further seizures. He has known seizure disorder and not taking his anticonvulsants - Data Points Medications Given: Discontinued Medications Chlordiazepoxide (Librium 25 Mg Prepack#6) 1 btl TAKEHOME EDNOW ONE Stop: 01/15/18 20:46 Last Admin: 01/15/18 20:52 Dose: 1 btl Departure - Departure Disposition: Home, Routine, Self-Care Clinical Impression: Epilepsy Alcohol withdrawal Qualifiers: Complication of substance-induced condition: uncomplicated Qualified Code(s): F10.230 - Alcohol dependence with withdrawal, uncomplicated Condition: Good Instructions: Chlordiazepoxide/Clidinium (By mouth), Alcohol Withdrawal (ED) Additional Instructions: Do not drink further alcohol. Start taking your seizure medication called Keppra twice daily. Follow up with [facility]. Return for worsening symptoms Referrals: NONE *PRIMARY CARE P,. [Primary Care Provider] - As per Instructions [facility] [Outside] - As per Instructions Prescriptions: levETIRAcetam [Keppra 500 mg (*)] 500 mg PO BID #30 tab
[2018-01-15] MEDS ORDERED: CHLORDIAZEPOXIDE 25MG PREPK#6 BTL TAKEHOME ONE (20:45)
[2018-01-15 20:54] VITALS: RESP 18; TEMP 98.6
[2018-01-15 20:56] VITALS: BP 155/85; PULSE 95; O2SAT 96
== END 2018-01-15 20:58 | disposition home or self-care (01) ==
DX: G40.909 Epilepsy, unspecified, not intractable, without status epilepticus (principal); F10.230 Alcohol dependence with withdrawal, uncomplicated; F17.200 Nicotine dependence, unspecified, uncomplicated

== ENCOUNTER 2019-03-10 18:13 | Emergency (ER) | payer OTHER ==
[2019-03-10] MEDS ORDERED: LORazepam 2 MG/ML INJ IVP ONE (18:17)
[2019-03-10] MEDS ORDERED: NS 1,000 ML IV ONE ×2 (18:18→20:15)
--- NOTE | 2019-03-10 18:18 | EDPHY ---
H & P Time Seen by Provider: 03/10/19 18:18 HPI/ROS: CHIEF COMPLAINT: Seizure HISTORY OF PRESENT ILLNESS: Patient is a 49-year-old alcoholic with a history of withdrawal seizures. He has been prescribed Keppra in the past but he does not take this and tells me that he does not have epilepsy. He tells me that all of his seizures have been in the setting of alcohol withdrawal. He states that he has not drink for about 12 hr and went to the bar and after 1 sip of beer had a seizure. He did not fall and did not hit his head. Witnesses helped him to the ground. He has some mild abrasions to his lips and tongue. No incontinence. He was postictal when EMS arrived but had stable vital signs and normal glucose. He was not given any medications. Severity: Moderate Modifying factors: None REVIEW OF SYSTEMS: Constitutional: denies: chills, fever, recent illness, recent injury EENTM: denies: blurred vision, double vision, nose congestion Respiratory: denies: cough, shortness of breath Cardiac: denies: chest pain, irregular heart rate, lightheadedness, palpitations Gastrointestinal/Abdominal: denies: abdominal pain, diarrhea, nausea, vomiting, blood streaked stools Genitourinary: denies: dysuria, frequency, hematuria, pain Musculoskeletal: denies: joint pain, muscle pain Skin: denies: lesions, rash, jaundice, bruising Neurological: See HPI denies: headache, numbness, paresthesia, tingling, dizziness, weakness Hematologic/Lymphatic: denies: blood clots, easy bleeding, easy bruising Immunologic/allergic: denies: HIV/AIDS, transplant 10 systems reviewed and negative except as noted EXAM: GENERAL: Well-appearing, well-nourished and in no acute distress. HEAD: Atraumatic, normocephalic. EYES: Pupils equal round and reactive to light, extraocular movements intact, sclera anicteric, conjunctiva are normal. ENT: Slight abrasions to tongue and lips, TMs normal, nares patent, Moist mucous membranes. NECK: Normal range of motion, supple without lymphadenopathy or JVD. LUNGS: Breath sounds clear to auscultation bilaterally and equal. No wheezes rales or rhonchi. HEART: Regular rate and rhythm without murmurs, rubs or gallops. ABDOMEN: Soft, nontender, normoactive bowel sounds. No guarding, no rebound. No masses appreciated. BACK: No CVA tenderness, no spinal tenderness, step-offs or deformities EXTREMITIES: Normal range of motion, no pitting or edema. No clubbing or cyanosis. NEUROLOGICAL: Mild shakes, Cranial nerves II through XII grossly intact. Normal speech, normal gait. 5/5 strength, normal movement in all extremities, normal sensation, normal reflexes PSYCH: Normal mood, normal affect. SKIN: Warm, dry, normal turgor, no visible rashes or lesions. Source: Patient, EMS Exam Limitations: No limitations - Personal History Tetanus Vaccine Date: ADM 08/17/2014 - Medical/Surgical History Hx Asthma: No Hx Chronic Respiratory Disease: No Hx Diabetes: No Hx Cardiac Disease: No Hx Renal Disease: No Hx Cirrhosis: No Hx Alcoholism: Yes Hx HIV/AIDS: No Hx Splenectomy or Spleen Trauma: No Other PMH: pmh- alcohol withdrawal seizures, narcolepsy, ETOH abuse, Cocaine. psh- rhinoplasty - Social History Smoking Status: Current every day smoker Alcohol Use: Heavy Drug Use: Cocaine Constitutional: Initial Vital Signs Temperature (C) 36.8 C 03/10/19 18:18 Heart Rate 124 H 03/10/19 18:18 Respiratory Rate 18 03/10/19 18:18 Blood Pressure 158/96 H 03/10/19 18:18 O2 Sat (%) 93 03/10/19 18:18 O2 Delivery Mode Room Air Allergies/Adverse Reactions: Penicillins Allergy (Unknown, Verified 03/10/19 18:18) Home Medications: Medication Instructions Recorded levETIRAcetam [Keppra 500 mg (*)] 500 mg PO BID #60 tab 08/05/17 levETIRAcetam [Keppra 500 mg (*)] 500 mg PO BID #30 tab 01/15/18 Medical Decision Making ED Course/Re-evaluation: 7:00 p.m. the patient is sleeping comfortably in as a heart rate of 80 however when I wake him up his heart rate increases to 110 and he is slightly tremulous. Will treat with Librium and continue to observe. He does not want to go to [facility]. The patient is eager to go and was to get back to work. 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 8:00 p.m. the patient continues to sleep and has a heart rate in 80s however when he wakes up he is slightly tachycardic tremulous. Will continue to observe and hydrate with another L of fluids. 10:15 p.m. the patient is feeling much better. He is still slightly tachycardic around 103. He declines further medication. He does not wish to go to recovery. He plans to go out and drink. I do not feel comfortable giving him prescription for benzodiazepines. We discussed indications for returning. He refuses further care. Differential Diagnosis: Partial list of the Differential diagnosis considered include but were not limited to; alcohol withdrawal, seizure, mouth laceration and although unlikely based on the history and physical exam, I also considered head injury, infection, extremity injury. I discussed these differential diagnoses and the plan with the patient as well as the usual and expected course. The patient understands that the diagnosis is provisional and that in medicine we are not always correct and that further workup is often warranted. Usual and customary warnings were given. All of the patient's questions were answered. The patient was instructed to return to the emergency department should the symptoms at all worsen or return, otherwise to followup with the physician as we discussed. - Data Points Medications Given: Discontinued Medications Chlordiazepoxide HCl (Librium) 50 mg PO EDNOW ONE Stop: 03/10/19 19:00 Last Admin: 03/10/19 19:07 Dose: 50 mg Sodium Chloride (Ns) 1,000 mls @ 0 mls/hr IV EDNOW ONE; Wide Open PRN Reason: Protocol Stop: 03/10/19 18:19 Last Admin: 03/10/19 18:23 Dose: 1,000 mls Sodium Chloride (Ns) 1,000 mls @ 0 mls/hr IV EDNOW ONE; Wide Open PRN Reason: Protocol Stop: 03/10/19 20:16 Last Admin: 03/10/19 20:17 Dose: 1,000 mls Lorazepam (Ativan Injection) 2 mg IVP EDNOW ONE Stop: 03/10/19 18:18 Last Admin: 03/10/19 18:23 Dose: 2 mg Departure - Departure Disposition: Home, Routine, Self-Care Clinical Impression: Alcohol abuse, Seizure Alcohol withdrawal Qualifiers: Complication of substance-induced condition: with unspecified complication Qualified Code(s): F10.239 - Alcohol dependence with withdrawal, unspecified Condition: Fair Instructions: Alcohol Withdrawal (ED) Referrals: Patient,NotPresent [Unknown] - As per Instructions Kerri Tan MD [Medical Doctor] - 2-3 days, call for appt.
[2019-03-10] MEDS ORDERED: chlordiazePOXIDE 25 MG CAP PO ONE (18:59)
[2019-03-10 22:34] VITALS: BP 145/80
== END 2019-03-10 22:32 | disposition home or self-care (01) ==
LOC: EDUNIT#
DX: F10.239 Alcohol dependence with withdrawal, unspecified (principal); R56.9 Unspecified convulsions; E86.9 Volume depletion, unspecified
CPT/HCPCS: 96374; J2060

== ENCOUNTER 2019-04-20 16:37 | Emergency (ER) | payer OTHER | END 2019-04-20 20:13 | disposition home or self-care (01) ==